=== PATIENT | male | born 2005 | race Asian ===

== ENCOUNTER 2023-12-21 04:32 | Emergency (ER) | payer SELFPAY ==
[2023-12-21 04:37] VITALS: BP 140/74
[2023-12-21 06:00] VITALS: BP 134/75
--- NOTE | 2023-12-21 06:02 | EDRN ---
Pt has had L shoulder pain for months, no known injury. Pt notes pain when he rotates forearm, when he exercises. Pt has not been evaluated for this pain. Most recently, pt flew from [place] three days ago and while on the 19 hour flight (2 stops),
pt noticed L calf pain. Pt did not get up and walk around during flights. Pt says the pain was bad earlier causing him to walk on his tip toes. Pt denies cp, sob, cough, fever/chills, abd pain, n/v.
--- NOTE | 2023-12-21 06:40 | ED.GENMED ---
History of Present Illness
General
Chief Complaint: Musculo-Skeletal Complaint
Source: patient and family
Exam Limitations: none
Time Seen by Provider: 12/21/23 06:04
Nursing documentation reviewed up to this point in time: agreed with
Travel History
Have you had any contact with someone who has COVID-19?: No
Do you have any symptoms of coronavirus? Fever > 100 degrees, chills, cough, shortness of breath, sore throat, loss of taste or smell, muscle aches, or headache?: No
History of Present Illness
History of Present Illness:
18-year-old male with no chronic medical issues presents to the emergency room for evaluation of left shoulder pain as well as left calf pain. Regarding his left shoulder: Patient reports that he has had pain for over a month. He says that he has
some aching pain in posterior/inferior shoulder that seems to be worse when he does pressing movements at the gym like for example a bench press or a push-up. He says that it does not really hurt him unless he is moving it. He says that it has
started to limit his pushing movements at the gym. Regarding his calf pain: Patient says that it started 2 to 3 days ago. He says that he had a recent 19+ hour flight from [facility] and while he was on the flight he noticed that he was having some
aching pain in the left mid calf. He says that over the past few days he has noticed some very slight swelling in the left calf. He says that his family was concerned that he could potentially be blood clot and urged him to come in for evaluation.
He has not had any chest pain or shortness of breath. He denies any other complaints today.
Review of Systems
Review of Systems
All Other Systems: ROS reviewed and negative except as documented in HPI and ROS
Constitutional: Denies fever or chills
Respiratory: Denies cough or trouble breathing
Cardiac: Denies chest pain or palpitations
ABD/GI: Denies abdominal pain, nausea or vomiting
: Denies flank pain
Musculoskeletal: Reports joint pain (Left shoulder pain) and muscle pain (Left calf pain); Denies neck pain or back pain
Neurological: Denies dizzy or headache
Phy Exam
Physical Exam
Physical Exam:
General: Awake, alert, oriented x3; no acute distress
Head: Normocephalic, atraumatic
Eyes: Conjunctiva normal
Throat: Airway intact, handling secretions
Neck: Trachea midline, supple without meningismus
Lungs: Clear to auscultation bilaterally, no wheezing, rales, rhonchi
Heart: Regular rate and rhythm, no murmurs, gallops, or rubs
Abd: Soft, non distended, nontender
Neuro: Cranial nerves grossly intact, speech fluid
Skin: no rash
Extremities--all extremities are warm and well-perfused with good palpable pulses, specifically strong palpable DP and PT pulses in the lower extremities bilaterally and radial pulses in the upper extremities bilaterally
Left shoulder: Patient has no deformity or swelling of the left shoulder; he has full active range of motion with minimal discomfort; he has no reproducible tenderness along the clavicle, scapula, humeral head or AC joint; no reproducible tenderness
in the left upper arm; there is no edema or swelling of the left upper extremity
Left leg: Patient has no significant swelling or asymmetry of the lower extremities, no edema; he has some very mild tenderness in the left mid calf but no erythema, warmth, swelling, skin changes and no palpable cords; he has no tenderness in the
left thigh; he has no knee effusion or joint line tenderness in the knee, no pain with manipulation of patella, full range of motion of the left knee; likewise he has good range of motion of the left ankle and no swelling or deformity, no tenderness
in the left ankle
Scores
Heart Failure Risk
Heart Failure Risk Score: Not Applicable
Heart Score for Chest Pain Patients
STEMI patient?: Not applicable
Withdrawal Assessment of Alcohol
Withdrawal Assessment Completed?: Not applicable
Course
Orders/Labs/Results
Orders:
Orders
12/21/23 06:06
US Periph Venous LOWER Ext LT Urgent
Comment:
Reason For Exam: left calf pain
12/21/23 06:22
Electrocardiogram (*1) Urgent
Reason for Study: Syncope
EKG- Treatment ONCE
CR Shoulder - Left Min 2 View* Urgent
Comment:
Reason For Exam: left shoulder pain
Vital Signs
Initial and Last Documented VS:
Initial Vital Signs
Temp Pulse Resp BP Pulse Ox
36.6 C 90 18 140/74 100
12/21/23 04:37 12/21/23 04:37 12/21/23 04:37 12/21/23 04:37 12/21/23 04:37
Last Documented Vital Signs
Temp Pulse Resp BP Pulse Ox
36.6 C 91 14 134/75 99
12/21/23 04:37 12/21/23 06:00 12/21/23 06:00 12/21/23 06:00 12/21/23 06:00
MDM/Problems Addressed
Differential Diagnosis Includes:
Left shoulder pain: Rotator cuff tendinopathy, rotator cuff tear, osteoarthritis less likely in a 18-year-old, less likely radiculopathy with no shooting pains down the arm/referred pain
Left calf pain: DVT, calf strain, contusion, Barnhart's cyst
MDM/Problems Addressed:
18-year-old male presents to the emergency room with his family for evaluation of left shoulder pain that has been ongoing for months and is mostly with pressing movements at the gym. Also requesting evaluation for left calf pain after a long
flight from [facility]. Vital signs are normal. Exam as above. Check x-ray of the left shoulder. Check left lower extremity ultrasound. Will reassess after the above.
Left lower extremity ultrasound called back: Negative for DVT. Continue to monitor while awaiting rest of workup.
X-ray shows no acute pathology to account for patient's symptoms. Regarding his shoulder pain I suspect that it is likely rotator cuff tendinopathy based on location and positional trigger. Advised rest, avoidance of triggering activities and will
provide referral to orthopedics for outpatient follow-up. Regarding calf pain: No signs of acute DVT. Suspect that this is likely a muscular strain. No skin changes to suggest cellulitis. No ecchymosis to suggest contusion or hematoma. Advised
rest, ice and can follow-up with PCP or orthopedics as needed. Spoke about return precautions all questions answered.
*Radiology
Radiology exam reviewed: preliminary read by ED provider and radiology read reviewed
*Pulse Oximetry
Patient hypoxic: no
*EKG
Interpreted by ED Provider?: Yes
Heart Rate: 72
Rate: normal
Rhythm: sinus
[place]: normal axis
Interval: normal interval and normal QT interval
QRS Pattern: normal QRS
Ischemia: no ischemia
*Critical Care Note
Total Time (30-74mins, 75-104mins- exclusive of procedures): Not Applicable
Data Reviewed
Source: patient and family
ED Attending Note
-
Portions of this chart may have been created with voice recognition software.� Occasional wrong word or��sound alike� substitutions may have occurred due to the inherent limitations of voice recognition software.
Discharge Plan
Departure
Patient Disposition: Home (Routine Discharge)
Date of Disposition: 12/21/23
Time of Disposition: 08:23
Patient with high blood pressure during this ER visit?: No
Discharge Problem:
Pain of left calf, Left shoulder pain
Instructions: Lower Extremity Muscle Strain (DC), Shoulder Tendinopathy (DC)
Prescriptions:
No Action
No Current Medications
0
Referrals:
NONE,* [Family Provider] -
Mike Colón MD [Active] - Call in 1-3 days for appt (Orthopedist)
Activity Restrictions/Additional Instructions:
Thank you for visiting the Emergency Department at [facility].
1. Please schedule a follow up appointment as directed. Call first thing tomorrow morning to make an appointment.
2. If indicated, please take your medications as instructed and indicated on discharge paperwork.
3. If any of your symptoms do not improve, or persist, or become more severe within 6-12 hours, please return to the emergency department for further care.
4. Please return to the emergency department if you develop a headache, neck pain/stiffness, fever greater than 100.4F, chest pain, shortness of breath, persistent nausea, vomiting, slurred speech, difficulty walking, numbness/tingling, weakness,
signs of infection or any other symptoms that are worrisome to you.
Please call [phone] if you have any questions.
Interventions
Interventions:
*Risk Screen - Suicide Last Done: 12/21/23 04:37
*General Assessment Last Done: 12/21/23 06:00
*Neglect/Abuse Screening Last Done: 12/21/23 04:37
ED- Fall Risk Assessment Last Done: 12/21/23 06:00
*ED COVID-19 Vaccine History Last Done: 12/21/23 06:00
ED-Musculoskeletal Assessment Last Done: 12/21/23 06:00
Discharge Date and Time
Print Language: DIVEHI
== END 2023-12-21 08:40 | disposition home or self-care (01) ==
LOC: EMR 04:32
PROVIDERS: EMERGENCY PHYSICIAN Emergency Medicine
DX: M79.662 Pain in left lower leg (principal); M25.512 Pain in left shoulder
CPT/HCPCS: 99284; 73030; 93005; 93971